=== PATIENT | male | born 1980 | race Two or more races ===

== ENCOUNTER 2017-02-13 20:10 | Emergency (ER) | payer BC ==
[2017-02-13 20:51] LABS: Urine Bacteria Absent (Absent); Urine Bilirubin Negative (Negative); Urine Glucose Negative (Negative); Urine Nitrite Negative (Negative)
--- NOTE | 2017-02-13 21:15 | RAD ---
INDICATION: Testicular pain COMPARISON: None TECHNIQUE: Duplex interrogation of the scrotum was performed. FINDINGS: Testicles: The testicles are Normal in size and echogenicity. There is no evidence of testicular mass. There is symmetric flow on Doppler interrogation. There is no evidence of torsion.. The right testis measures 5.6 x 2.8 x 3.7 cm and the left 5.2 x 2.5 x 3.8 cm. There is symmetric flow on Doppler interrogation. Epididymides: There are small right-sided epididymal cysts the largest which measures 0.3 cm. The epididymides are normal in size. There is symmetric flow on Doppler interrogation. The right epididymal head measures 0.9 x 1.1 cm and the left 0.8 x 1.1 cm. Hydroceles: Small bilateral. Varicoceles: None. Other: There may be a small fat-containing left inguinal hernia elicited with Valsalva maneuver. IMPRESSION: No evidence of testicular mass or torsion.
[2017-02-13 22:22] VITALS: BP 157/111
--- NOTE | 2017-02-13 22:29 | ED ---
Tangela Cage Alfonso, scribed for Zaheer Alonzo MD on 02/13/17 at 2146 . GI/ HPI - HPI Summary HPI Summary: This patient is a 36 year old M presenting to [facility] with a chief complaint of left testicular pain gradually worsening since yesterday afternoon. The pain began while sitting at his desk. He states it feels like my testicle is shifting up and down. The patient rates the pain 4/10 in severity. Symptoms aggravated by movement. Symptoms alleviated by nothing. Patient denies fever, chills, dysuria, and bowel symptoms. He denies abdominal PSHx. Medications reviewed. Allergies reviewed. - History of Current Complaint Chief Complaint: EDUrogenitalProblems Time Seen by Provider: 02/13/17 21:41 Stated Complaint: TESTICLE PAIN Hx Obtained From: Patient Onset/Duration: Started Days Ago - yesterday afternoon, Atraumatic, Still Present Timing: Constant Current Severity: Moderate Pain Intensity: 4 Additional Locations for Males: Testicles - L Associated Signs and Symptoms: Positive: Other: - Patient denies fever, chills, dysuria, and bowel symptoms Aggravating Factor(s): Movement Alleviating Factor(s): Nothing - Allergy/Home Medications Allergies/Adverse Reactions: Allergies Allergy/AdvReac Type Severity Reaction Status Date / Time No Known Allergies Allergy Verified 02/13/17 20:20 PMH/Surg Hx/FS Hx/Imm Hx Opthamlomology History: Denies: Hx Legally Blind EENT History: Denies: Hx Deafness Infectious Disease History: No Infectious Disease History: Denies: Traveled Outside the [place] in Last 30 Days - Family History Known Family History: Positive: Diabetes - Social History Alcohol Use: every other day Substance Use Type: Reports: None Smoking Status (MU): Former Smoker Review of Systems Negative: Fever, Chills Positive: Other - Negative bowel sx Positive: other - left testicular pain. Negative: dysuria All Other Systems Reviewed And Are Negative: Yes Physical Exam - Summary Physical Exam Summary: General: well-appearing, no pain distress Skin: warm, color reflects adequate perfusion, dry Head: normal Eyes: EOMI, KETTY ENT: normal Neck: supple, nontender Respiratory: CTA, breath sounds present Cardiovascular: RRR Abdomen: soft, nontender Pelvic: Testicular both non swollen, equal alignment, non-tender to palpation, and no masses felt. No penile lesions or drainage. Bowel: present Musculoskeletal: normal, strength/ROM intact Neurological: normal, sensory/motor intact, A&O x3 Psychological: affect/mood appropriate Triage Information Reviewed: Yes Vital Signs On Initial Exam: Initial Vitals Temp Pulse Resp BP Pulse Ox 98.1 F 112 18 175/125 96 02/13/17 20:16 02/13/17 20:16 02/13/17 20:16 02/13/17 20:16 02/13/17 20:16 Vital Signs Reviewed: Yes - [place] Coma Scale Coma Scale Total: 15 Diagnostics - Vital Signs Vital Signs Temp Pulse Resp BP Pulse Ox 02/13/17 20:16 98.1 F 112 18 175/125 96 - Laboratory Lab Results: Lab Results 02/13/17 Range/Units 20:20 Urine Color Straw Urine Appearance Clear Urine pH 6.0 (5-9) Ur Specific [place] 1.006 L (1.010-1.030) Urine Protein Negative (Negative) Urine Ketones Negative (Negative) Urine Blood 1+ H (Negative) Urine Nitrate Negative (Negative) Urine Bilirubin Negative (Negative) Urine Urobilinogen Negative (Negative) Ur Leukocyte Esterase Negative (Negative) Urine WBC (Auto) Trace(0-5/hpf) (Absent) Urine RBC (Auto) Trace(0-2/hpf) (Absent) Urine Bacteria Absent (Absent) Urine Glucose Negative (Negative) Lab Statement: Any lab studies that have been ordered have been reviewed, and results considered in the medical decision making process. - Additional Comments Diagnostic Additional Comments: Testicular US reveals, per radiologist, No evidence of testicular mass or torsion. ED physician has reviewed this radiology report and agrees. GIGU Course/Dx - Course Course Of Treatment: DISCUSSED RESULTS WITH PATIENT. DISCUSSED TIGHT FITTING UNDERWEAR/IBUPROFEN AND F/U WITH PMD. ALSO F/U WITH SURGERY FOR THE LEFT INGUINAL HERNIA. HE WILL RETURN IF WORSE. - Diagnoses Provider Diagnoses: Testicular/scrotal pain, Inguinal hernia, left Discharge - Discharge Plan Condition: Stable Disposition: HOME Patient Education Materials: Inguinal Hernia (ED), Scrotal Pain (ED), Testicle Pain (ED) Referrals: [facility] [Provider Group] [facility] [Outside] Cristofer Oconnor MD [Medical Doctor] - Additional Instructions: FOLLOW UP WITH YOUR PRIMARY CARE DOCTOR. FOLLOW UP WITH SURGERY FOR YOUR LEFT INGUINAL HERNIA. RETURN TO THE EMERGENCY DEPARTMENT FOR ANY WORSENING OF YOUR CONDITION; SCROTAL/ TESTICULAR PAIN/SWELLING, FEVER, YOU FEEL ILL OR QUESTIONS OR CONCERNS. The documentation as recorded by the Tangela green Alfonso accurately reflects the service I personally performed and the decisions made by me, Zaheer Alonzo MD.
== END 2017-02-13 22:21 | disposition home or self-care (01) ==
LOC: ED 20:10
DX: K40.90 Unilateral inguinal hernia, without obstruction or gangrene, not specified as recurrent (principal); N50.812 Left testicular pain
CPT/HCPCS: 76870; 81003; 81015; 99282